=== PATIENT | male | born 1955 | race Asian ===

== ENCOUNTER → 2018-01-28 | Outpatient (CLI) | payer OTHER ==
--- NOTE | 2018-01-28 13:39 | Diagnostic Imaging Report ---
PROCEDURE:X-RAY ABDOMEN - KUB COMPARISON:None. INDICATIONS:CALCULUS OF KIDNEY FINDINGS: There is a non-obstructed bowel-gas pattern. 2 mm calcification overlying the mid pole left renal shadow. 2-3 mm calcification overlying left renal inferior pole shadow. There are no acute osseous abnormalities. CONCLUSION: Subcentimeter left renal calculi. Dictated by: Vince Traore M.D. on 01/28/2018 at 13:44 Electronically approved by: Vince Traore M.D. on 01/28/2018 at 13:44
== END ==
LOC: RAD 11:57
PROVIDERS: ATTEND Urology
DX: N20.0 Calculus of kidney (principal)
CPT/HCPCS: 74018